=== PATIENT | male | born 1985 | race Caucasian/White ===

== ENCOUNTER 2025-01-20 01:42 | Inpatient (IN) | payer OTHER ==
[~2025-01-20] VITALS: Ht 170.2 cm; Wt 75.3 kg
[2025-01-20] MEDS ORDERED: HYDROMORPHONE 1 MG/1 ML DISP.SYRIN ONE (03:21)
[2025-01-20] MEDS ORDERED: ONDANSETRON HCL/PF 4 MG/2 ML VIAL ONE (03:21)
[2025-01-20] MEDS ORDERED: IOHEXOL-300 100 ML VIAL IV ONE (03:24)
[2025-01-20] MEDS ORDERED: CT SWABBABLE VALVE TRANS SET 1 EA INFUS.SET MC ONE (03:24)
[2025-01-20] MEDS ORDERED: IV NS 0.9% 250 ML IV ONE (03:24)
[2025-01-20] MEDS: HYDROMORPHONE 1 MG/1 ML DISP.SYRIN IV ONE (03:27)
[2025-01-20] MEDS: ONDANSETRON HCL/PF - ER 4 MG/2 ML VIAL IV ONE (03:28)
[2025-01-20] MEDS: ALBUTEROL FS 2.5 MG/3 ML VIAL.NEB NEB ONE ×2 (03:31→09:19)
[2025-01-20 03:32] LABS: BASOPHILS # (AUTO) 0.1 K/uL (0.0-0.2); BASOPHILS % (AUTO) 0.8 % (0.0-2.0); EOSINOPHILS # (AUTO) 0.2 K/uL (0.0-0.7); EOSINOPHILS % (AUTO) 3.1 % (0.0-6.0); HEMATOCRIT 23 % (39-51); LYMPHOCYTES # (AUTO) 1.3 K/uL (0.8-4.8); LYMPHOCYTES % (AUTO) 18.9 % (20.0-44.0); MEAN CORPUSCULAR HEMOGLOBIN 16 PG (26.0-33.0); MEAN CORPUSCULAR HGB CONC 29 g/dl (31.0-36.0); MEAN CORPUSCULAR VOLUME 56 fL (80-96); MONOCYTES # (AUTO) 0.6 K/uL (0.1-1.30); MONOCYTES % (AUTO) 8.2 % (2.0-12.0); NEUTROPHILS # (AUTO) 4.9 K/uL (1.8-8.9); PLATELET COUNT (AUTO) 353 K/uL (150-450); RED BLOOD CELL COUNT(AUTO) 4.17 MIL/uL (4.5-6.0); RED CELL DISTRIBUTION WIDTH 19.5 % (11.5-15.0); WHITE BLOOD COUNT (AUTO) 7.1 K/uL (4.3-11.0)
[2025-01-20] MEDS ORDERED: ALBUTEROL FS 2.5 MG/3 ML VIAL.NEB ONE ×2 (03:34→09:21)
[2025-01-20 03:40] VITALS: O2SAT 99
[2025-01-20 03:41] LABS: HEMOGLOBIN 6.7 g/dL (13.5-17.5)
[2025-01-20 03:50] LABS: ALANINE AMINOTRANSFERASE 19 U/L (12-78); ALBUMIN 3.8 g/dL (3.4-5.0); ALKALINE PHOSPHATASE 76 U/L (46-116); ASPARTATE AMINOTRANSFERASE 12 U/L (15-37); BILIRUBIN,TOTAL 0.3 mg/dL (0.2-1.0); CALCIUM, SERUM 8.4 mg/dL (8.5-10.1); CARBON DIOXIDE 24 mmol/L (21-32); CHLORIDE 105 mmol/L (98-107); CREATININE 0.9 mg/dL (0.6-1.3); GLUCOSE 109 mg/dL (74-106); POTASSIUM 3.7 mmol/L (3.5-5.1); SODIUM SERUM 141 mmol/L (136-145); TOTAL PROTEIN, SERUM 6.9 g/dL (6.4-8.2); UREA NITROGEN, BLOOD 8 mg/dL (7-18)
[2025-01-20 03:52] VITALS: O2SAT 100
[2025-01-20 03:58] LABS: ALCOHOL, BLOOD < 3 mg/dL (0-10)
[2025-01-20 04:15] LABS: EOSINOPHILS % (MANUAL) 1 % (0-4); HYPOCHROMASIA 2+; LYMPHOCYTES % (MANUAL) 18 % (16-48); MONOCYTES % (MANUAL) 7 % (0-11.0); NEUTROPHILS % (MANUAL) 74 (42-76)
[2025-01-20 04:16] LABS: ANISOCYTOSIS 2+
[2025-01-20 04:23] LABS: PLATELET ESTIMATE ADEQU
[2025-01-20 04:32] LABS: OVALOCYTES 1+
[2025-01-20 05:54] LABS: HEMOGLOBIN 6.5 g/dL (13.5-17.5)
[2025-01-20 06:32] LABS: IRON, SERUM 7 ug/dl (50-175); TOTAL IRON BINDING CAPACITY 413 ug/dl (250-450)
[2025-01-20] MEDS ORDERED: MAGNESIUM HYDROXIDE 30 ML UDC PO PRN (07:00)
[2025-01-20] MEDS ORDERED: Z GUARD REMEDY 4 OZ OINT TP PRN ×2 (07:00→10:30)
[2025-01-20] MEDS ORDERED: ACETAMINOPHEN 325 MG TABLET PO PRN (07:00)
[2025-01-20] MEDS ORDERED: TEMAZEPAM 15 MG CAPSULE PO PRN (07:00)
[2025-01-20] MEDS ORDERED: ONDANSETRON HCL/PF 4 MG/2 ML VIAL IVP PRN (07:00)
[2025-01-20] MEDS ORDERED: HYDROCODONE/APAP 5/325MG TABLET PO PRN (07:00)
[2025-01-20] MEDS ORDERED: MAG HYDROX/AL HYDROX/SIMETH 30 ML UDC PO PRN (07:00)
[2025-01-20] MEDS: PANTOPRAZOLE 40 MG TABLET.DR PO SCH (07:30)
[2025-01-20] MEDS ORDERED: MORPHINE SULFATE INJ 4 MG/ML DISP.SYRIN ONE (08:35)
[2025-01-20] MEDS ORDERED: PRED10TA PO (08:39)
[2025-01-20] MEDS ORDERED: ALBU18HF2 IH (08:39)
[2025-01-20] MEDS: MORPHINE SULFATE INJ 2 MG/ML DISP.SYRIN IV PRN (09:04)
[2025-01-20 09:19] VITALS: O2SAT 100
[2025-01-20] MEDS: IPRATROPIUM NEB FS 0.5 MG/2.5 ML AMPUL.NEB NEB ONE (09:19)
[2025-01-20] MEDS ORDERED: IPRATROPIUM NEB FS 0.5 MG/2.5 ML AMPUL.NEB ONE (09:21)
[2025-01-20 09:34] VITALS: O2SAT 100
[2025-01-20 10:30] VITALS: BP 110/80; TEMP 97.9; TEMP 98.2; O2SAT 100
[2025-01-20] MEDS: IV NS 0.9% 1,000 ML IV PRN (13:54)
[2025-01-20] MEDS: SOD FERRIC GLUC 125 MG in IV NS 0.9% 100 ML IV SCH (13:54)
[2025-01-20 22:00] VITALS: BP 110/55; TEMP 97.5; O2SAT 99
[2025-01-21] VITALS (10 sets, daily range): BP systolic 113–125; BP diastolic 62–72; TEMP 97.5–98.6; O2SAT 98–100
[2025-01-21 00:32] LABS: BASOPHILS # (AUTO) 0.1 K/uL (0.0-0.2); BASOPHILS % (AUTO) 0.9 % (0.0-2.0); EOSINOPHILS # (AUTO) 0.5 K/uL (0.0-0.7); EOSINOPHILS % (AUTO) 4.9 % (0.0-6.0); HEMATOCRIT 28 % (39-51); LYMPHOCYTES # (AUTO) 1.4 K/uL (0.8-4.8); MEAN CORPUSCULAR HEMOGLOBIN 17 PG (26.0-33.0); MEAN CORPUSCULAR HGB CONC 29 g/dl (31.0-36.0); MEAN CORPUSCULAR VOLUME 59 fL (80-96); MONOCYTES # (AUTO) 0.9 K/uL (0.1-1.30); MONOCYTES % (AUTO) 9.8 % (2.0-12.0); NEUTROPHILS # (AUTO) 6.7 K/uL (1.8-8.9); NEUTROPHILS % (AUTO) 69.4 % (43.0-81.0); PLATELET COUNT (AUTO) 327 K/uL (150-450); RED CELL DISTRIBUTION WIDTH 21.4 % (11.5-15.0); WHITE BLOOD COUNT (AUTO) 9.6 K/uL (4.3-11.0)
[2025-01-21] MEDS: ALBUTEROL FS 2.5 MG/3 ML VIAL.NEB NEB PRN (06:38)
[2025-01-21] MEDS: IPRATROPIUM NEB FS 0.5 MG/2.5 ML AMPUL.NEB NEB PRN (06:38)
[2025-01-21 09:14] LABS: OCCULT BLOOD STOOL POSITIVE (NEGATIVE)
[2025-01-21] MEDS: ALBUTEROL FS 2.5 MG/3 ML VIAL.NEB NEB SCH ×2 (09:28→11:30)
[2025-01-21] MEDS: IPRATROPIUM NEB FS 0.5 MG/2.5 ML AMPUL.NEB NEB SCH ×2 (09:29→11:30)
[2025-01-21] MEDS ORDERED: ALBUTEROL HALF STRENGTH 1.25 MG/3 ML VIAL.NEB NEB PRN (09:30)
[2025-01-21] MEDS: ALBUTEROL SULFATE 8 GM HFA.AER.AD IH PRN (10:00)
[2025-01-21] MEDS: methylPREDNISolone SOD SUCC 125 MG/2ML VIAL IV SCH (10:04)
[2025-01-21 17:20] LABS: BASOPHILS % (AUTO) 0.1 % (0.0-2.0); HEMATOCRIT 28 % (39-51); HEMOGLOBIN 8.3 g/dL (13.5-17.5); LYMPHOCYTES # (AUTO) 0.3 K/uL (0.8-4.8); LYMPHOCYTES % (AUTO) 3.5 % (20.0-44.0); MEAN CORPUSCULAR HEMOGLOBIN 17 PG (26.0-33.0); MEAN CORPUSCULAR HGB CONC 29 g/dl (31.0-36.0); MEAN CORPUSCULAR VOLUME 59 fL (80-96); MONOCYTES % (AUTO) 0.4 % (2.0-12.0); NEUTROPHILS # (AUTO) 8.5 K/uL (1.8-8.9); PLATELET COUNT (AUTO) 347 K/uL (150-450); WHITE BLOOD COUNT (AUTO) 8.9 K/uL (4.3-11.0)
[2025-01-21 17:29] LABS: CALCIUM, SERUM 9.2 mg/dL (8.5-10.1); CREATININE 1.1 mg/dL (0.6-1.3); POTASSIUM 3.5 mmol/L (3.5-5.1)
[2025-01-22] VITALS (13 sets, daily range): BP systolic 110–130; BP diastolic 51–70; TEMP 97.7–98.4; O2SAT 95–100
[2025-01-22] MEDS: TEMAZEPAM 15 MG CAPSULE PO PRN (01:21)
[2025-01-22] MEDS ORDERED: DIATR MEGLU/DIATRIZOATE SODIUM 30 ML BOTTLE (GASTROGRAPHIN) ONE (13:23)
[2025-01-22] MEDS ORDERED: IOHEXOL-300 100 ML VIAL IV ONE (13:56)
[2025-01-22] MEDS ORDERED: CT SWABBABLE VALVE TRANS SET 1 EA INFUS.SET MC ONE (13:56)
[2025-01-22] MEDS ORDERED: IV NS 0.9% 250 ML IV ONE (13:56)
[2025-01-22 19:13] LABS: AMPHETAMINE, URINE NEGATIVE (NEGATIVE); BARBITURATE, URINE NEGATIVE (NEGATIVE); BENZODIAZEPINE, URINE NEGATIVE (NEGATIVE); CANNABINOID, URINE NEGATIVE (NEGATIVE); COCCAINE, URINE NEGATIVE (NEGATIVE); OPIATE, URINE NEGATIVE (NEGATIVE); PHENCYCLIDINE SCREEN,URINE NEGATIVE (NEGATIVE)
[2025-01-22 19:29] LABS: APPEARANCE,URINE CLEAR (CLEAR); BILIRUBIN,URINE NEGATIVE (NEGATIVE); BLOOD, URINE NEGATIVE Ery/uL (NEGATIVE); COLOR,URINE YELLOW (YELLOW); KETONES,URINE 1+ mg/dL (NEGATIVE); LEUKOCYTE ESTERASE ,URINE NEGATIVE (NEGATIVE); NITRITE, URINE NEGATIVE (NEGATIVE); PH,URINE 6.5 (5.0-8.0); PROTEIN,URINE NEGATIVE (NEGATIVE); UGLUCOSE NEGATIVE (NEGATIVE); UROBILINOGEN,URINE 0.2 EU/dL (0.2)
[2025-01-22 19:55] LABS: ADD URINE CULTURE NO; BACTERIA,URINE None seen /HPF (None Seen); RBC,URINE 0-2 /HPF (0-2); SQUAMOUS EPITHELIAL CELL,UR 0-2 /HPF (None Seen); WBC,URINE 0-2 /HPF (0-3)
[2025-01-23] VITALS (9 sets, daily range): BP systolic 108–123; BP diastolic 56–66; TEMP 98–98.4; O2SAT 95–100
[2025-01-23 07:06] LABS: HEMATOCRIT 27 % (39-51); HEMOGLOBIN 7.6 g/dL (13.5-17.5); LYMPHOCYTES # (AUTO) 0.9 K/uL (0.8-4.8); LYMPHOCYTES % (AUTO) 3.6 % (20.0-44.0); MEAN CORPUSCULAR HEMOGLOBIN 18 PG (26.0-33.0); MEAN CORPUSCULAR HGB CONC 28 g/dl (31.0-36.0); MEAN CORPUSCULAR VOLUME 62 fL (80-96); MONOCYTES # (AUTO) 1.4 K/uL (0.1-1.30); MONOCYTES % (AUTO) 5.1 % (2.0-12.0); NEUTROPHILS # (AUTO) 24.3 K/uL (1.8-8.9); NEUTROPHILS % (AUTO) 91.3 % (43.0-81.0); PLATELET COUNT (AUTO) 314 K/uL (150-450); RED BLOOD CELL COUNT(AUTO) 4.37 MIL/uL (4.5-6.0); WHITE BLOOD COUNT (AUTO) 26.6 K/uL (4.3-11.0)
[2025-01-23 07:28] LABS: CALCIUM, SERUM 8.3 mg/dL (8.5-10.1); CREATININE 0.7 mg/dL (0.6-1.3); POTASSIUM 4.3 mmol/L (3.5-5.1)
[2025-01-23] MEDS ORDERED: PRED20TA PO (08:14)
[2025-01-23] MEDS ORDERED: ESCI10TA PO (08:14)
[2025-01-23] MEDS: PAROXETINE HCL 10 MG TABLET PO SCH (08:33)
[2025-01-23] MEDS: ESCITALOPRAM OXALATE (10 MG) 10 MG TABLET PO SCH (09:17)
[2025-01-23 11:03] LABS: LYMPHOCYTES % (MANUAL) 2 % (16-48); MONOCYTES % (MANUAL) 3 % (0-11.0); NEUTROPHILS % (MANUAL) 95 (42-76)
[2025-01-23 12:33] LABS: ANISOCYTOSIS 2+; HYPOCHROMASIA 1+; PLATELET ESTIMATE ADEQUATE
== END 2025-01-23 12:15 | disposition home or self-care (01) | DRG 253 ==
LOC: ER 01:46 → MEDSG1 10:39 → TELE1 10:45
PROVIDERS: ADMIT Internal Medicine; ATTEND Internal Medicine
PROC: 30233N1 Transfusion of Nonautologous Red Blood Cells into Peripheral Vein, Percutaneous Approach (ICD-10-PCS; principal; 2025-01-20)
DX: K92.2 Gastrointestinal hemorrhage, unspecified (principal); K76.0 Fatty (change of) liver, not elsewhere classified; J45.901 Unspecified asthma with (acute) exacerbation; D50.0 Iron deficiency anemia secondary to blood loss (chronic); V43.52XA Car driver injured in collision with other type car in traffic accident, initial encounter; Y92.410 Unspecified street and highway as the place of occurrence of the external cause; V89.2XXA Person injured in unspecified motor-vehicle accident, traffic, initial encounter; Z79.51 Long term (current) use of inhaled steroids; Z79.899 Other long term (current) drug therapy; F41.1 Generalized anxiety disorder; F33.9 Major depressive disorder, recurrent, unspecified
CPT/HCPCS: 36415; 70450-TC; 71045-TC; 71260-TC; 72125-TC; 73552; 73590-TC; 76700-TC; 80048-TC; 80053-TC; 81001; 82272-TC; 83540-TC; 83605-TC; 85025-TC; 85027-TC; 86850-TC; 94760-TC; 94799-TC; 97110-TC; 97116-TC; 97530-TC; G0378; G0480; J1171; J2270; J2405; J2916; J2919; J7030; J7050; P9016; Q9963; Q9967